=== PATIENT | male | born 1950 | race Caucasian/White ===

== ENCOUNTER 2024-06-20 10:42 | Outpatient (RCR) | payer MEDICARE, SELFPAY ==
[2024-06-20 10:52] VITALS: BMI 26.3
== END 2024-09-04 09:33 | disposition home or self-care (01) ==
LOC: ANHDMC 10:42
PROVIDERS: Visit Provider Family Medicine
DX: E11.65 Type 2 diabetes mellitus with hyperglycemia (principal); Z71.3 Dietary counseling and surveillance
CPT/HCPCS: 97802